=== PATIENT | female | born 1985 | race Caucasian/White ===

== ENCOUNTER 2020-06-09 10:41 | Emergency (ER) | payer OTHER ==
[~2020-06-09] VITALS: Ht 162.6 cm; Wt 81.7 kg
[~2020-06-09 10:41] MED LIST: DIFLUCAN150 MG PO; DYRENIUM50 MG PO; HYCET 7.5 MG-3473 ML PO; NORTRIPTYLINE H10 M1 GT; NYSTATIN 1100000 U/M PO; PROAIR HFA8.5 GM INH; TOPROL XL25 MG PO
[2020-06-09] MEDS ORDERED: MECLIZINE HCL25 M1 PO ×2 (10:52)
[2020-06-09] MEDS ORDERED: OTOVEL 0.3%-0.1 EACH RT. EAR (10:53)
[2020-06-09] MEDS ORDERED: HYDROCHLOROTHIA25 M1 PO (10:53)
[2020-06-09] MEDS ORDERED: LOPRESSOR50 MG PO (10:53)
[2020-06-09] MEDS ORDERED: HYDROCODON-ACE1 EA11 PO (11:09)
[2020-06-09] MEDS ORDERED: NAPROSYN500 MG PO (11:09)
[2020-06-09] MEDS ORDERED: CIPROFLOXACIN500 M1 PO (11:09)
[2020-06-09] MEDS ORDERED: CIPROFLOX-DEXA7.5 ML OTIC (11:09)
[2020-06-09 11:10] VITALS: BP 127/81
== END 2020-06-09 11:10 | disposition home or self-care (01) ==
LOC: M.ERS 10:41
DX: R30.0 Dysuria (principal); H60.92 Unspecified otitis externa, left ear; Z88.1 Allergy status to other antibiotic agents; Z79.899 Other long term (current) drug therapy; Z98.890 Other specified postprocedural states